=== PATIENT | male | born 1955 ===

== ENCOUNTER 2018-04-19 13:15 | Emergency (ER) | payer SELFPAY ==
[2018-04-19 13:43] VITALS: BP 156/83; PULSE 80; RESP 19; TEMP 98.2; O2SAT 96
[2018-04-19] MEDS ORDERED: Lidocaine 2% Inj (20ml) INFIL ONE (14:33)
[2018-04-19] MEDS ORDERED: Bacitracin 500 Units/gm Oint Foilpak UD ONE (14:36)
[2018-04-19] MEDS ORDERED: Lidocaine 2% MPF (5 ml) Inj ONE (14:36)
--- NOTE | 2018-04-19 16:00 | C.PDOC ---
History Of Present Illness 62 y/o male presents to the emergency department with complaints of a laceration to the right wrist. Patient sustained the wound at work due to a lighting housing unit that fell. Pressure was applied and bleeding was controlled. No light bulb was in the unit. He denies any tingling or numbness to hand. Patient is right hand dominant. Tetanus is up to date. Time Seen by Provider: 04/19/18 14:15 Chief Complaint (Nursing): Abnormal Skin Integrity History Per: Patient History/Exam Limitations: no limitations Onset/Duration Of Symptoms: Hrs Current Symptoms Are (Timing): Still Present Past Medical History Reviewed: Historical Data, Nursing Documentation, Vital Signs Vital Signs: Last Vital Signs Temp 98.2 F 04/19/18 13:37 Pulse 80 04/19/18 13:37 Resp 19 04/19/18 13:37 BP 156/83 H 04/19/18 13:37 Pulse Ox 96 04/19/18 16:03 - Medical History Other PMH: Myocardial infarction Surgical History: Coronary Stent (X 2) Other Surgeries: Right knee surgery Family History: States: No Known Family Hx - Social History Hx Alcohol Use: Yes Hx Substance Use: Yes - Immunization History Hx Tetanus Toxoid Vaccination: Yes ("A COUPLE YEARS AGO") Hx Influenza Vaccination: No Hx Pneumococcal Vaccination: No Review Of Systems Except As Marked, All Systems Reviewed And Found Negative. Skin: Positive for: Lesions (to right wrist) Neurological: Negative for: Weakness, Numbness, Incoordination Physical Exam - Physical Exam Appears: Non-toxic, No Acute Distress Skin: Normal Color, Warm, No Rash Head: Atraumatic, Normacephalic Eye(s): bilateral: Normal Inspection Oral Mucosa: Moist Neck: Normal ROM, Supple Chest: Symmetrical Extremity: Normal ROM, Capillary Refill (< 2 sec), No Deformity, No Swelling, Other (2.5 cm laceration on lateral aspect of right wrist; No active bleeding) Pulses: Left Radial: Normal, Right Radial: Normal Neurological/Psych: Oriented x3, Normal Speech ED Course And Treatment O2 Sat by Pulse Oximetry: 96 (RA) Pulse Ox Interpretation: Normal Laceration - Laceration Repair right wrist Wound Length (In cm): 2.5 Description Of Wound: Linear Anesthesia: Lidocaine 2% Wound Examination: Irrigated With Saline, No FB With Wound Exploration, No Tendon Injury With Wound Exploration Wound Closure: Suture (x5) Suture Technique And Material Used: Interrupted, Nylon (4:0) Wound Complexity: Simple Medical Decision Making Medical Decision Making: Impression: 62 year old with laceration Plan: --Laceration repaired without difficulty Patient counseled regarding wound care and follow up instructions. There is agreement to discharge plan. Disposition Counseled Patient/Family Regarding: Diagnosis, Need For Followup - Disposition Referrals: [facility] Kiarra Carroll, [Non-Staff] - Disposition: HOME/ ROUTINE Disposition Time: 14:20 Condition: IMPROVED Additional Instructions: SOO CASTRO, thank you for letting us take care of you today. Your provider was Avni Delgado DO and you were treated for LACERATION ON HAND. The emergency medical care you received today was directed at your acute symptoms. If you were prescribed any medication, please fill it and take as directed. It may take several days for your symptoms to resolve. Return to the Emergency Department if your symptoms worsen, do not improve, or if you have any other problems. Please contact your doctor or call one of the physicians/clinics you have been referred to that are listed on the Patient Visit Information form that is included in your discharge packet. Bring any paperwork you were given at discharge with you along with any medications you are taking to your follow up visit. Our treatment cannot replace ongoing medical care by a primary care provider outside of the emergency department. Thank you for allowing the [facility] to be part of your care today. Follow up with your primary care doctor in 7 days for suture removal. If you see redness/signs of infection, please return to the emergency room. Instructions: Laceration Repair With Stitches (DC) Forms: [employer] (Yi), Work Excuse - POA Present On Arrival: None - Clinical Impression Clinical Impression: Laceration - Scribe Statement The provider has reviewed the documentation as recorded by the Scribe (Karol Rudolph) Provider Attestation: All medical record entries made by the Scribe were at my direction and personally dictated by me. I have reviewed the chart and agree that the record accurately reflects my personal performance of the history, physical exam, medical decision making, and the department course for this patient. I have also personally directed, reviewed, and agree with the discharge instructions and disposition.
== END 2018-04-19 14:56 | disposition home or self-care (01) ==
LOC: C.ER 13:15
DX: S61.511A Laceration without foreign body of right wrist, initial encounter (principal); W20.8XXA Other cause of strike by thrown, projected or falling object, initial encounter; Y99.0 Civilian activity done for income or pay